=== PATIENT | male | born 1995 | race Caucasian/White ===

== ENCOUNTER 2021-04-16 11:08 | Inpatient (IN) | payer MEDICARE, MEDICAID ==
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
[2021-04-16 12:03] LABS: Amphetamine Screen,Urine Not Detected (NotDetected); Barbiturate Screen,Urine Not Detected (NotDetected); Benzodiazepines Screen,Urine Not Detected (NotDetected); Cocaine Screen,Urine Not Detected (NotDetected); Methadone Screen, Urine Not Detected (NotDetected); Opiate Screen,Urine Not Detected (NotDetected); Oxycodone Screen, Urine Not Detected (NotDetected); Phencyclidine Screen,Urine Not Detected (NotDetected); Tricyclic Antidepressant,Urine Not Detected (NotDetected); Urn Cannabinoid Scrn Detected (NotDetected)
[2021-04-16] MEDS ORDERED: MAG HYDROX/AL HYDROX/SIMETH 30 ML CUP PO PRN (16:56)
[2021-04-16] MEDS ORDERED: ACETAMINOPHEN TAB 325 MG TAB PO PRN (16:56)
[2021-04-16] MEDS ORDERED: MAGNESIUM HYDROXIDE 2,400 MG/10 ML CUP PO PRN (16:56)
[2021-04-16] MEDS ORDERED: LORazepam 1 MG TAB PO PRN (16:56)
[2021-04-16] MEDS ORDERED: LORazepam 2 MG/ML INJ IM PRN (16:59)
[2021-04-16] MEDS ORDERED: QUEtiapine 25 MG TAB PO PRN (16:59)
[2021-04-16] MEDS ORDERED: HALOPERIDOL LACTATE 5 MG/ML 1 ML VIAL IM PRN (16:59)
[2021-04-16] MEDS: NICOTINE 14MG/24HR PATCH TRANSDERM SCH (17:42)
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
[2021-04-17 00:36] LABS: Amorphous Sediment,Urine Rare /hpf; Appearance,Urine Clear (Clear); Bilirubin,Urine Negative (Negative); Blood,Urine Trace (Negative); Color,Urine Yellow; Glucose,Urine (UA) Negative (Negative); Hyaline Casts,Urine 12 /lpf (0-2); Ketones,Urine 2+ (Negative); Leukocyte Esterase,Urine Negative (Negative); Mucus,Urine Occasional /hpf; Nitrite,Urine Negative (Negative); Protein,Urine Trace (Negative); RBC,Urine <1 /hpf (0-5); Specific Gravity,Urine 1.012 (1.001-1.035); Squamous Epithelial Cell,Urine <1 /hpf (0-4); Urobilinogen,Urine <2.0 mg/dL (<2.0); WBC,Urine 4 /hpf (0-5)
[2021-04-17 07:30] LABS: Basophils % (A) 1 %; Eosinophils # (A) 0.1 k/uL (0-0.7); Eosinophils % (A) 1 %; HCT 48.1 % (39.0-53.0); HGB 15.7 gm/dL (13.0-17.5); Lymphocytes # (A) 2.8 k/uL (1.0-4.8); Lymphocytes % (A) 31 %; MCH 31.1 pg (25.0-35.0); MCHC 32.7 g/dL (31.0-37.0); MCV 95.2 fL (80.0-100.0); Mean Platelet Volume 7.5; Monocytes # (A) 0.7 k/uL (0-1.0); Monocytes % (A) 7 %; Neutrophils # (A) 5.2 k/uL (1.3-7.7); Neutrophils % (A) 57 %; Platelet Count 329 k/uL (150-450); RBC 5.06 m/uL (4.30-5.90); RDW 12.7 % (11.5-15.5)
[2021-04-17 07:44] LABS: ALT 15 U/L (4-49); AST 37 U/L (17-59); African American GFR (CKD) >90 (>60 ml/min/1.73 sqM); Albumin 5.1 g/dL (3.5-5.0); Alkaline Phosphatase 80 U/L (38-126); Anion Gap 16 mmol/L; Blood Urea Nitrogen 19 mg/dL (9-20); Calcium 9.9 mg/dL (8.4-10.2); Carbon Dioxide 25 mmol/L (22-30); Chloride 102 mmol/L (98-107); Glucose 96 mg/dL (74-99); Non-African American GFR(CKD) >90 (>60 ml/min/1.73 sqM); Potassium 3.7 mmol/L (3.5-5.1); Sodium 143 mmol/L (137-145); Total Bilirubin 1.5 mg/dL (0.2-1.3); Total Protein 7.7 g/dL (6.3-8.2)
[2021-04-17] MEDS: NICOTINE 14MG/24HR PATCH TRANSDERM SCH (09:18)
[2021-04-17 12:03] LABS: Chol/HDL Ratio 3.25 Ratio; LDL Cholesterol,Calculated 92.2 mg/dL (0.0-131.0)
[2021-04-17] MEDS ORDERED: diphenhydrAMINE 25 MG CAP PO PRN (12:43)
[2021-04-17 12:51] VITALS: BMI 17.2
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
[2021-04-17] MEDS ORDERED: PALIPERIDONE 3 MG TAB.ER.24 PO SCH (21:00)
[2021-04-18] MEDS: NICOTINE 14MG/24HR PATCH TRANSDERM SCH (08:55)
[2021-04-18] MEDS: PALIPERIDONE 3 MG TAB.ER.24 PO SCH ×2 (12:52→20:19)
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
[2021-04-19] MEDS: NICOTINE 14MG/24HR PATCH TRANSDERM SCH (08:03)
[2021-04-19] MEDS: PALIPERIDONE 3 MG TAB.ER.24 PO SCH ×2 (08:03→20:38)
[2021-04-20] MEDS: PALIPERIDONE 3 MG TAB.ER.24 PO SCH (08:14)
[2021-04-20] MEDS: NICOTINE 14MG/24HR PATCH TRANSDERM SCH (08:14)
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
[2021-04-20] MEDS: PALIPERIDONE 6 MG TAB.ER.24 PO SCH (20:52)
[2021-04-21 07:23] VITALS: BP 114/61; PULSE 85; RESP 16; TEMP 98.7
[2021-04-21] MEDS: NICOTINE 14MG/24HR PATCH TRANSDERM SCH ×2 (08:09→08:10)
[2021-04-21] MEDS: PALIPERIDONE 3 MG TAB.ER.24 PO SCH (08:09)
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
[2021-04-21] MEDS: PALIPERIDONE 6 MG TAB.ER.24 PO SCH (20:52)
[2021-04-22] MEDS: NICOTINE 14MG/24HR PATCH TRANSDERM SCH (08:43)
[2021-04-22] MEDS: PALIPERIDONE 3 MG TAB.ER.24 PO SCH (08:43)
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
[2021-04-22] MEDS: PALIPERIDONE 6 MG TAB.ER.24 PO SCH (20:30)
[2021-04-23] MEDS: NICOTINE 14MG/24HR PATCH TRANSDERM SCH (08:26)
[2021-04-23] MEDS: PALIPERIDONE 3 MG TAB.ER.24 PO SCH (08:26)
[2021-04-23] MEDS ORDERED: PALIPERIDONE IM 234 MG/1.5 ML SYG IM STA (11:43)
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
== END 2021-04-23 16:50 | disposition home or self-care (01) | DRG 885 ==
LOC: EC 11:08 → 3MHU 15:52
PROVIDERS: ADMIT Psychiatry & Neurology Psychiatry; ATTEND Psychiatry & Neurology Psychiatry
DX: F20.9 Schizophrenia, unspecified (principal); R45.851 Suicidal ideations; F12.10 Cannabis abuse, uncomplicated; F17.210 Nicotine dependence, cigarettes, uncomplicated; F31.9 Bipolar disorder, unspecified; F41.9 Anxiety disorder, unspecified; F42.9 Obsessive-compulsive disorder, unspecified; F84.5 Asperger's syndrome; G47.00 Insomnia, unspecified; Z82.5 Family history of asthma and other chronic lower respiratory diseases; Z20.822 Contact with and (suspected) exposure to COVID-19
CPT/HCPCS: 80053; 80061; 80306; 81001; 82075; 83036; 84443; 85025; 87635; 99285